=== PATIENT | female | born 2000 | race Caucasian/White ===

== ENCOUNTER 2020-09-20 21:38 | Emergency (ER) | payer OTHER ==
[~2020-09-20] VITALS: Ht 167.6 cm; Wt 72.6 kg
[2020-09-21] MEDS ORDERED: ULTRACET PO (07:45)
[2020-09-21] MEDS ORDERED: DICLOFENAC SODI50 MG PO (07:45)
== END 2020-09-21 08:11 | disposition home or self-care (01) ==
LOC: EMR PED 21:38 → ER 21:38 → EMR PED 22:03
DX: M25.461 Effusion, right knee (principal); M70.41 Prepatellar bursitis, right knee; M23.8X1 Other internal derangements of right knee; Z20.822 Contact with and (suspected) exposure to COVID-19